=== PATIENT | female | born 1945 | race Caucasian/White ===

== ENCOUNTER 2021-10-27 11:38 | Inpatient (IN) | payer MEDICARE ==
[~2021-10-27] VITALS: Ht 160 cm; Wt 58.5 kg
[~2021-10-27 11:38] MED LIST: ACYCLOVIR800 MG PO; ADVAIR 250-501 EACH INH; ALBUTEROL2.5 MG/0.5 INH; CIPRO500 MG PO; DIAZEPAM5 MG PO; DILTIAZEM 24HR360 MG PO; DILTIAZEM ER300 M1 PO; ELIQUIS5 MG PO; EUTHYROX50 MCG PO; FUROSEMIDE20 MG PO; IBUPROFEN800 MG PO; K-TAB ER20 MEQ PO; LANOXIN125 MCG PO; LEVOTHYROXINE50 MC1 PO; MAG-OXIDE400 MG PO; MAGNESIUM400 MG PO; MAPAP500 MG PO; MUPIROCIN22 GM TP; OMEPRAZOLE20 MG PO; PREDNISONE20 MG PO; PROAIR HFA8.5 GM; SYMBICORT 16010.2 GM INH; SYNTHROID75 MCG PO; TUSSINMAX15 MG/5 ML PO; ULTRAM50 MG PO; VALIUM5 MG PO; VERAPAMIL HCL120 MG PO; VOLTAREN ARTHRI20 GM TOP; ZITHROMAX250 MG PO
--- OUTSIDE RECORDS SUMMARY | 2021-10-27 11:40 | XMS ---
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 E.D. VISIT COUNT (12 MO.) 1 [facility] H. 4 [facility] 3 [facility] [address] [facility] 2 [facility] Wiggins TOTAL 12 NOTE: Visits indicate total known visits. ED/UCC VISIT TRACKING (12 MO.) 10/27/2021 11:39 [facility] [place] TYPE: Emergency COMPLAINT: - POSS SUICIDE ATTEMPT 10/13/2021 11:[address] [facility] [place] TYPE: Emergency DIAGNOSES: - Chronic obstructive pulmonary disease with (acute) exacerbation - SOB/Chest Pain 10[facility]12[facility]2021 00:12 [facility] [facility]: Emergency COMPLAINT: - SOB 09/24/2021 22:[address] [facility] Maricel [place] TYPE: Emergency DIAGNOSES: - Shortness of Breath - sob - Acute respiratory failure with hypercapnia - Acute respiratory failure with hypoxia - Acute respiratory distress - Chronic obstructive pulmonary disease with (acute) exacerbation 07/04/2021 16:15 [facility] [place] TYPE: Emergency DIAGNOSES: - Diverticulitis of intestine, part unspecified, without perforation or abscess without bleeding - ABD PAIN 06/21/2021 07:44 [facility] TYPE: Emergency DIAGNOSES: - Diverticulitis of intestine, part unspecified, without perforation or abscess without bleeding - ABDOMINAL PAIN 05/19/2021 19:28 [facility] TYPE: Emergency DIAGNOSES: - SOB - Chronic obstructive pulmonary disease, unspecified 04/27/2021 03:30 [facility] [place] TYPE: Emergency DIAGNOSES: - Non-ST elevation (NSTEMI) myocardial infarction - COPD EXACERBATION 04/23/2021 16:06 [facility] TYPE: Emergency COMPLAINT: - Shortness of Breath DIAGNOSES: - Chronic obstructive pulmonary disease with (acute) exacerbation - Shortness of Breath 03[facility]13[facility]2021 [facility] [place] [facility]: Emergency DIAGNOSES: - Chest Heaviness - Shortness of Breath - Phlebitis and thrombophlebitis of unspecified site - Arm Pain 03/08/2021 15[facility] [place] TYPE: Emergency DIAGNOSES: - Acute cystitis without hematuria - Chronic obstructive pulmonary disease, unspecified - Diverticulitis of intestine, part unspecified, without perforation or abscess without bleeding - Abdominal Pain - Constipation - Dependence on supplemental oxygen - Disorder of kidney and ureter, unspecified 02/19/2021 12[facility]03 [facility] [place] TYPE: Emergency DIAGNOSES: - Diverticulitis of intestine, part unspecified, without perforation or abscess without bleeding - Abdominal Pain - Chest Pain INPATIENT VISIT TRACKING (12 MO.) 10/12/2021 00:13 [facility] TYPE: Observation COMPLAINT: - EXACERBATION OF COPD DIAGNOSES: - Acute and chronic respiratory failure with hypoxia - Anxiety disorder, unspecified - Gastro-esophageal reflux disease without esophagitis - Hypothyroidism, unspecified - Unspecified atrial fibrillation - Acute and chronic respiratory failure with hypercapnia - Do not resuscitate - Chronic obstructive pulmonary disease with (acute) exacerbation - long-term (current) use of anticoagulants - Nicotine dependence, unspecified, uncomplicated - Hypokalemia 09/24/2021 22:[facility] DIAGNOSES: - Acute respiratory distress - Unspecified severe protein-calorie malnutrition - Other toxic encephalopathy - Nicotine dependence, unspecified, uncomplicated - Acute and chronic respiratory failure with hypercapnia - Anxiety disorder, unspecified - Acute cystitis without hematuria - Acute and chronic respiratory failure with hypoxia - Acute respiratory failure with hypoxia - Hypothyroidism, unspecified - Unspecified atrial fibrillation - Acute respiratory failure with hypercapnia - Chronic obstructive pulmonary disease with (acute) exacerbation - Chronic obstructive pulmonary disease with (acute) exacerbation - Gastro-esophageal reflux disease without esophagitis 04/27/2021 08:16 [place] TYPE: Medical Surgical COMPLAINT: - CAP; ELEV TROPONIN; NSTEMI R/O DIAGNOSES: 0. Shortness of breath 1. Pneumonia, unspecified organism 2. Acute and chronic respiratory failure with hypoxia 3. Diverticulitis of large intestine without perforation or abscess without bleeding 4. Other forms of acute ischemic heart disease 5. Chronic obstructive pulmonary disease with (acute) lower respiratory infection 6. Anxiety disorder, unspecified 7. Hypothyroidism, unspecified 8. Essential (primary) hypertension 9. Nicotine dependence, cigarettes, uncomplicated 10. Dependence on supplemental oxygen 11. Family history of ischemic heart disease and other diseases of the circulatory system 12. Family history of disorders of kidney and ureter 13. Family history of malignant neoplasm of bladder 03/08/2021 15:[facility] TYPE: Internal Medicine DIAGNOSES: - Dependence on supplemental oxygen - Diverticulitis of intestine, part unspecified, without perforation or abscess without bleeding - Disorder of kidney and ureter, unspecified - Chronic obstructive pulmonary disease, unspecified - Acute cystitis without hematuria [id number]
--- NOTE | 2021-10-27 12:52 | EKG ---
[facility] [address] [place] [address] Signed Unusual P axis, possible ectopic atrial bradycardia Minimal voltage criteria for LVH, may be normal variant ( [place] product ) Abnormal ECG When compared with ECG of 12-OCT-2021 00:20, Ectopic atrial rhythm has replaced Sinus rhythm Vent. rate has decreased BY [address] no longer depressed in Inferior leads Non-specific change in ST segment in Anterolateral leads Confirmed by SUJATA DEGROOT DO ([id number]) on 10/27/2021 12:52:20 PM Electronically Signed By: SUJATA DEGROOT DO 10/27/21 1252 PATIENT NAME: BAYRON BARRETT Electrocardiogram DATE OF : 49 PHYSICIAN: SUJATA DEGROOT DO REPORT #: [id number] REPORT IS CONFIDENTIAL AND NOT TO BE RELEASED WITHOUT AUTHORIZATION
[2021-10-27] MEDS ORDERED: LEVOTHYROXINE75 MCG PO (13:31)
[2021-10-27] MEDS ORDERED: BUDESONIDE-FO10.2 G1 INH (13:32)
--- NOTE | 2021-10-27 17:11 | NUR ---
MED REC COMPLETE
--- NOTE | 2021-10-27 17:45 | NUR ---
PT ARRIVED FROM ER AT 1715. PT NEEDED IV SITES FOR MEDS. PT ON VENT. PT NOT ADEQUATLEY SEDATED AT THIS TIME. ATTEMPTED TO PUT IN OG-TUBE. PT WAS FIGHTING THE TUBE. PROPOFOR LOWERING BP AND HR TOO MUCH. URINE OTUPUT NONE SO FAR.
--- NOTE | 2021-10-27 18:45 | NUR ---
PT NOW ON KETAMIN DRIP AND PROPOFOL DRIP. HOPE TO FIND GOOD BALANCE BETWEEN SEDATION AND STABLE BP/HR. WAITING ON CONFIRMATION X-RAY FOR OG-TUB PLACEMENT. LOBES CLEAR AND DIMM. ABD SOUNDS PRESENT. PUPILS PINPOINT. ETCO2 <30,RT IS AWARE.
--- NOTE | 2021-10-27 20:59 | NUR ---
ASSESSED PT AT START OF SHIFT, PT BEGAN SHAKING AND HEART RHYTHM CHANGED FROM SINUS VIKKI TO A FLUTTER, AT NURSES STATION AND NOTIFIED, BLOOD TINGED GI CONTENTS COMING FROM OGMD NOTIFIED AT NURSES STATION. PT CURRENTLY HAS RASS OF -4, SEDATED AND INTUBATED, ON PROPOFOL AND KETAMINE, IN RESTRAINTS ON WRISTS. WILL CONTINUE TO CLOSELY MONITOR PT
--- NOTE | 2021-10-27 23:28 | NUR ---
POISON CONTROL CALLED TO CHECK IN ON PT AND TREATMENTS. PER THEIR RECOMMENDATION, REPEAT DIGOXIN LEVEL ORDERED FOR 0000.
--- NOTE | 2021-10-28 00:13 | NUR ---
Dr Moreno notified of decreased urine output, pt has had a total of 28ml of urine out for my shift so far and over 600ml intake via IV fluids. Dr Moreno stated she was not concerned about the urine output, no new orders recieved.
--- NOTE | 2021-10-28 01:10 | NUR ---
received call from lab critical value digoxin 2.1
--- NOTE | 2021-10-28 03:54 | NUR ---
[facility] CALLED, UPDATED ON DIGOXIN LEVEL. PER THEIR RECOMMENDATIONS, ADDED ANOTHER DIGOXIN LEVEL TO MORNING LABS.
--- NOTE | 2021-10-28 04:00 | NUR ---
PT REMAINS AT RASS -4, HAVE DECREASED PROPOFOL TO 10 AND KETAMINE TO 0.1, WILL CONTINUE DECREASING SEDATION AND PLAN TO DO SAT AROUND 0500 WITH RT
--- NOTE | 2021-10-28 05:45 | NUR ---
WHILE ASSISTING WITH REPOSITIONING, NOTICED SKIN TEAR TO LEFT FOREARM, ABOVE RESTRAINTS. WOUND CLEANSED WITH WOUND SIGNAL SYSTEM TESTING MAINTAINER, BACITRACIN APPLIED, AND THEN COVERED WITH NON-ADHESIVE PAD AND WRAPPED WITH GAUZE.
--- NOTE | 2021-10-28 06:02 | NUR ---
SBT STARTED AT 0510.
--- NOTE | 2021-10-28 06:07 | NUR ---
PT DOING SAT, SEDATION IS OFF, PT ABLE TO FOLLOW COMMANDS AND SHAKE HER HEAD YES AND NO WHEN ASKED QUESTIONS, SHOOK HER HEAD NO TO THE QUESTION "DO YOU KNOW WHERE YOU ARE", SHOOK HER HEAD YES TO THE QUESTION "DO YOU REMEMBER TAKING A LOT OF YOUR MEDICINE", AND SHOOK HER HEAD YES TO THE QUESTION "WERE YOU TRYING TO END YOUR LIFE". DAUGHTER AT BEDSIDE AND EDUCATED TO THE PROCESS OF THE SAT/SBT WELL PLANS REGARDING HER HOSPITAL STAY. DAUGHTER STATED SHE WANTS TO TAKE HER MOM TODAY AND DOES NOT UNDERSTAND WHY WE CANNOT RELEASE HER MOTHER AT THIS POINT. FURTHER EDUCATION REGARDING THE SITUATION WILL BE PROVIDED.
--- NOTE | 2021-10-28 08:00 | NUR ---
RECEIVED REPORT AT 0700. PT WAS ON C-PAP AT THAT TIME ON A SEDATION VACATION. AT THIS TIME LOBES ARE CLEAR BUT DIMINISHED IN THE BASES. ABD SOUNDS PRESENT. BILATERAL LOWER LEGS AND FEET HAVE SOME TRACE EDEMA PRESENT. V/S WDL SO FAR.
--- NOTE | 2021-10-28 09:00 | NUR ---
AT 0845 PT WAS PUT BACK ON VENT DUE TO FALIURE OF SEDATIONS VACATION. PT BREATHS BECAME VERY SHALLOW AND PT WOULD ONLY ON COMMAND TAKE DEEP BREATHS WITH SOMEONE AT BEDSIDE. INFORMED.
--- NOTE | 2021-10-28 09:15 | NUR ---
PT FAILED WEAN TRAIL LOW MINUTE VENTILATION 3.88 AND TIDAL VOLUMES OF 150 ,PT HAD INCREASE BP AND WAS DROWSY, PLACED BACK ON SUPPORT . WILL CONTINUE SPONT BREATHING TRIALS THOUGHOUT THE DAY
--- NOTE | 2021-10-28 09:37 | NUR ---
PATIENT REMAINS ON VENT. NO FAMILY IN THE ROOM AT THIS TIME. WILL ASSESS PATIENTS NEEDS WITH PATIENT OR FAMILY WHEN AVAILABLE.
--- NOTE | 2021-10-28 10:00 | NUR ---
OG-TUBE FLUSHED WITH 40MLS H20. PT RE-POSITIONED FLOATING HER HIPS. INLINE SUCTIONS DONE, ORAL SUCTION DONE. PT NOW BACK ON PROPOFOL AT 30MCG. URINE OUTPUT WDL SO FAR.
--- NOTE | 2021-10-28 10:13 | NUR ---
PT JUST WENT INTO A-FLUTTER AT 45-50. MD DUBOSE CALLED, NO NEW ORDERS RECEIVED.
--- NOTE | 2021-10-28 10:20 | NUR ---
PT BACK IN SINUS VIKKI RHYTHM. WILL CONTINUE TO MONITOR.
--- NOTE | 2021-10-28 11:12 | NUR ---
AT THIS TIME PROPOFOL WAS PUT ON STANDBY TO TRY ANOTHER SEDATION VACATION. RT IN ROOM.
--- NOTE | 2021-10-28 12:30 | NUR ---
PT SLOWLY IS WAKING UP ONCE MORE. STILL ON VENT SETTING SO FAR. PT NOT RESPONDING TO COMMANDS OF YET. LOBES CLEAR BUT DIMINISHED THROUGHOUT, ABD SOUNDS SOMEWHAT PRESENT, RESTRAINTS WDL, URINE OUTPUT WDL. WILL CALL RT NOW.
--- NOTE | 2021-10-28 12:40 | NUR ---
RT IN ROOM, PT NOW ON C-PAP MODE AND SO FAR FOLLWING COMMANDS TO TAKE DEEP BREATHS. PT ASLO MOVING HER ARMS AND LEGS SPONTANEOUSLYL.
--- NOTE | 2021-10-28 14:32 | NUR ---
PT STILL ON AWAKENING TRIAL IN C-PAP MODE. PT MORE ALERT AT THIS TIME AND FOLLOWS MOST COMMANDS. RT ON HER WAY.
--- NOTE | 2021-10-28 14:45 | NUR ---
PT WAS SEDATION VACATION FROM 1240 TO 1445, PATIENT TILL NOT WAKEFUL, SHE IS ABLE TO FOLLOW SOME INSTRUCTIONS, AND HAS IMPROVED MINUTE VENTILATION 4.89 HOWEVER TIDAL VOLUMES DROP INTO THE LOW 150 RANGE AND RSBI INCREASES TO 110. TALK TO DOCTOR RASH SHE WOULD LIKE TO WORK ON THE SEDATION TO OPTIMIZE PATIENT OWN ABILITY AND WANT ANOTHER SEDATION VACATION EITHER TONIGHT OR IN THE AM. PLAN IS TO REEVAUATE IN THE AM AND MAY EXTUBATE WITH BIPAP ON STANDBY,. DURING ORAL CARE PATIENT HAS A JENNIFER ON THE MIDLE OF THE LOWER LIP THAT WAS DUE TO THE EET TUBE SECURER. PATIENT WAS REPOSITION ORAL CARE PROVIDED AND EET WAS MOVED TO LEFT SIDE THE MOUTH. A SKIN POTECTIONG BARRIER WAS PLACED ON THE BOTTOM OF THE EET TO PREVENT FUTHER BREAKDOWN. WILL CONTINUE TO MOVE EET PER PROTOCAL . PT EET SECURE 7.0 23 AT LIP , PATIENT APPEARS COMFORTABLE AT THIS TIME .
--- NOTE | 2021-10-28 15:09 | NUR ---
AT THIS TIME PT IS NOT READY TO BE EXTUBATED. PT IS STILL BREATHING VERY SHALLOW AND NOT ABLE TO FULLY FOLLOW COMMANDS. AT THIS TIME PT IS BEING SWITCHED TO VENT SETTINGS PER MD DUBOSE. PT NOW IS ON 20MCG PROPOFOR AND 0.1MG KETAMINE DRIP.
--- NOTE | 2021-10-28 17:00 | NUR ---
PT RASS -3. UPPER LOBES CLEAR, LOWER LOBES DIMINISHED. V/S WDL OVERALL. ABD SOUNDS PRESENT. PT HAS BILATERAL LOWER ARM/LOWER LEG/FOOT EDEMA PRESENT. URINE OUTPUT WDL SO FAR. ORAL SUCTIONING DONE. OG OUTPUT MINIMAL SO FAR.
--- NOTE | 2021-10-28 18:29 | NUR ---
PATIENT RE-POSITIONED. PROPOFOL AT 5MCG, KETAMINE AT 0.4MG.
--- NOTE | 2021-10-28 20:00 | NUR ---
RT IN ROOM FOR VENT CHECK. DISCUSSED PLAN OF CARE, SEDATION VACATION AT 0600 PER . PATIENT APPEARS COMFORTABLE. RASS -3. VS STABLE. SOFT RESTRAINTS PER ORDER, RELEASED AND ROM DONE. PATIENT REPOSITIONED TO THE RIGHT SIDE. ALYVEN PLACED ON SCABS/ABRASIONS ON LEFT LOWER BACK. AGUIAR CARE DONE. ADEQUATE URINE OUTPUT NOTED. TAPE ON NG TUBE LOOSE, REPOSITIONED TO ORIGINAL LOCATION AND REATTACHED. OG FLUSHED AND LIWS ATTACHED, MODERATE AMOUNT OF BROWN SEDIMENT SECREATIONS OUT. ORAL CARE DONE, PATIENT MORE ALERT FOR THIS WITH EYES OPEN. DOES NOT LOOK AT RN OR FIXATE ON ANYTHING. WARM CLOTH USED TO WIPE FACE AND EYE CRUST, EYE DROPS PLACED. SKIN TEAR ON LEFT ARM CLEANED AND REDRESSED WITH ADAPTIC, NON-ADHERANT PAD AND LIGHTLY WRAPPED COBAN. WARM BLANKET ON PATIENT AND POTIIONED WITH HOB AT 30 DEGREES.
--- NOTE | 2021-10-28 22:00 | NUR ---
PATIENT APPEARS COMFORTABLE. RASS -2. PROP AT 5 MCG.KG/MIN, KETAMINE TITRATED TO 0.5 MG/KG/HR. IV FLUIDS PER ORDER, SITE WNL X3. HR 50'S, SB. ELEVATED BP, SYSTOLIC 160'S. TEMP WNL. O2 SATS 92% ON 40% Fi02, PATIENT BREATHING OVER VENT AT 16 BPM. ETCO2 48.
--- NOTE | 2021-10-29 | NUR ---
PATIENT REPOSITIONED. ORAL CARE DONE. PATIENT TOLERATED WELL. ADEQUATE URINE OUTPUT. SEDATION AND VENT SETTINGS UNCHANGED. O2 SAT 90% ON 40% Fi02, RR 16. OCCATIONAL COUGH AND SUCTION REQUIRED.
--- NOTE | 2021-10-29 02:00 | NUR ---
PATIENT FOUND TO BE RESTLESS. MOVING EXTREMITIES IN BED AND ATTEMPTING TO PULL AT RESTRAINTS. PATIENT'S EYES WERE OPEN AND SHE RESPONDED SOMEWHAT MEANINGFULLY TO VERBAL STIMULI. PROPOFOL TITRATED TO 10 MCG/KG/HR, KETAMINE 1.0 MCG/KG/MIN BY EILEEN RN AND NYDIA RN. PATIENT CONTINUES TO MORE ALERT. PATIENT SQUEEZES MY HAND WHEN PROMTED. RR 28 AND MORE LABORED. PATIENT REPOSNDS TO VERBAL CALMING AND IS MORE CALM IN THE BED. ALLOWED PATIENT TO REST.
--- NOTE | 2021-10-29 04:00 | NUR ---
PATIENT TURNED TO HER RIGHT SIDE. ORAL CARE DONE. PATIENT TOLERATED WELL WITH MINIMAL WAKING. RASS SCORE -3. RT IN FOR VENT CHECK. PATIENT RR 20-24. PATIENT IS FLUSHED AND WARM TO THE TOUCH. AGUIAR TEMP 100.7F, AXILLARY 100.1F. PO TYLENOL ADMINISTERED PER TUBE. SUCTION STOPPED AT THIS TIME. AGUIAR CARE DONE, GOOD URINE OUTPUT. BP REMAINS ELEVATED, SYSTOLIC IN 160'S. HR 50-60'S, SINUS VIKKI. PROPOFOL TITRATED 5 MCG/KG/HR. KETAMINE TITRATED 0.6 MCG/KG/MIN. IV FLUIDS PER ORDER, SITES WNL X2. UPON ORAL AND ET SUCTION PATIENT HAD MODERATE AMOUNT OF SECREATIONS.
--- NOTE | 2021-10-29 05:43 | NUR ---
SEDATION VACATION STARTED. RT IN ROOM. ALL SEDATION IN STAND BY. PATIENT RASS SCORE -3.
--- NOTE | 2021-10-29 06:56 | NUR ---
discussed patient's sedation vacation results with md. RT AT BEDSIDE. PATIENT APPEARS APPROPRIATE FOR EXTUBATION. PATIENT ABLE TO COMMUNICATE THAT SHE DOES NOT WANT TO BE ON THE VENT AND DOES NOT WANT TO BE REINTUBATED. MD GAVE ORDERS TO EXTUBATE AND SWITCH TO BIPAP NEEDED. TUBE OUT PER RT AT 0645. PATIENT TOLERATED WELL. VOICE IS HORSE, PATIENT ON 8L OXY MASK WITH NEB TREATMENT. STATES "I WANT OUT OF HERE" AND ATTEMPTS TO REMOVE MASK. ENCOURAGED PATIENT TO REST. PATIENT WANTS HER DAUGHTER NAYELI CALLED. PATIENT VS STABLE.
--- NOTE | 2021-10-29 07:05 | NUR ---
UPDATE PROVIDED TO NAYELI, PER PATIENT REQUEST.
--- NOTE | 2021-10-29 07:15 | NUR ---
PATIENT TOLERATING OXY MASK WELL. PATIENT IS ALERT. TURNED TO RIGHT SIDE. PATIENT WANTS HER DAUGHTER TO PICK HER UP. ENCOURAGED PATIENT TO REST. RT AT BEDSIDE. PATIENT 1:1
--- NOTE | 2021-10-29 07:30 | NUR ---
REPORT RECIEVED. PATIENT ASKING TO GET OOB TO CHAIR. ASSESSMENT DONE. PATIENT ASKING FOR HOSPICE. TOLD PATIENT TAHT HER DAUGHTERS, DR. DUBOSE AND HERSELF WILL HAVE A MEETING REGARDING POC.
--- NOTE | 2021-10-29 08:00 | NUR ---
OOB TO CHAIR WITH ASSIST. ROUTINE MEDICATIONS GIVEN. IVF, AGUIAR CATH, OXYMASK AT [address] PATIENT HAS OCC COUGH. DEMOLITION WORKER IN ROOM.
--- NOTE | 2021-10-29 09:30 | NUR ---
REMAINS IN CHAIR, NO CHANGES. RR-20 AND NON LABORED.
--- NOTE | 2021-10-29 11:00 | NUR ---
BACK TO BED WITH ASSIST. TWO DAUGHTERS IN ROOM. IVF PATENT, AGUIAR CATH PATENT WITH CLEAR YELLOW URINE NOTED. PATIENT SLEEPING ON RIGHT SIDE. OXYMASK AT 4 L ON WITH SATURATION OF 97.
--- NOTE | 2021-10-29 11:05 | NUR ---
LIGHT OFF PER PATIENT REQUEST.
--- NOTE | 2021-10-29 12:30 | NUR ---
FAMILY MEMBERS OF PATIENT HERE TO TALK WITH DR. DUBOSE ABOUT POC. DR. DUBOSE AWARE.
--- NOTE | 2021-10-29 12:50 | NUR ---
DR. DUBOSE HERE TO TALK WITH FAMILY REGARDING PATIENT POC. FAMILY MEMBERS IN ROOM ARE ROMI COX (DAUGHTER), SUMAN PARADA (DAUGHTER), FAMILY MEMBERS ON PHONE: AUDIE MANRIQUEZ (DAUGHTER) AND PÉREZ GUZMAN (DAUGHTER). WITH DAUGHTERS TALKING TO DR. DUBOSE, ALL AGREE TO FOLLOW THEIR MOTHERS WISHES TO FOLLOW POLST FORM WHICH INDICATES PATIENT IS DNR AND WANTS COMFORT MEASURES ONLY. DR. DUBOSE HERE AND AWARE.
[2021-10-29] MEDS ORDERED: FENTANYL1 EAC4 TD (14:03)
[2021-10-29] MEDS ORDERED: MORPHINE S10 MG/5 ML PO (14:06)
--- NOTE | 2021-10-29 15:51 | NUR ---
NO CHANGES IN PATIENT CONDITION, PATIENT FAMILY MEMBERS SAID THEY WOULD BE ABLE TO TAKE HER HOME TOMORROW.
--- NOTE | 2021-10-29 15:55 | NUR ---
ASSESSMENT NOT DONE PATIENT COMFORT CARE. PATIENT IS SLEEPING ON RIGHT SIDE. O2 VIA OXYMASK AT 2 LITERS.
--- NOTE | 2021-10-29 16:30 | NUR ---
DAUGHTERS LEAVIING FOR THE NIGHT, REQUESTING EDUCATION REGARDING ANTICIPATED HOSPICE MEDS, PLAN TO GIVE EDUCATION TOMORROW WITH MEDICATION ADMINISTRAION AND THEY ARE AGREEABLE. ALSO ASK TO BE NOTIFIED WITH ANY CHANGE IN PT CONDITION.
--- NOTE | 2021-10-29 17:00 | NUR ---
REPORT TO MED-SURG. TO MED-SURG VIA BED. PATIENT NON-VERBAL AND NOT FOLLOWING COMMANDS AT THIS TIME. SINCE PATIENT RETURNED TO BED FORM CHAIR EARLIER, HAS NOT BEEN INTERACTIVE AT ALL. OBTUNDED. DAUGHTER ARE AWARE.
--- NOTE | 2021-10-29 17:52 | NUR ---
REPORT RECEIVED FROM CCU RN AND PT. ARRIVED VIA BED. SHE IS UNRESPONSIVE AND IS LABORED BREATHING. ARRIVED ON 2L NC AND O2 SAT IS 89%. SKIN APPEARS DUSKY. SHE HAS SKIN TEARS TO HER LEFT ARM AND ABRASIONS TO COCCYX. POSITIONED ON HER LEFT SIDE WITH BED ALARM ON.
--- NOTE | 2021-10-29 19:53 | NUR ---
REPORT RECEIVED FROM DAY SHIFT RN. PT LYING ON RIGHT SIDE WITH EYES CLOSED. NON RESPONSIVE TO VERBAL STIMULI. RESPIRATIONS EVEN. OXYMASK 2L IN PLACE. BED ALARM FOR SAFETY. WHITE BOARD UPDATED.
--- NOTE | 2021-10-29 22:20 | NUR ---
2PA TO REPOSITION PT IN BED FOR COMFORT. ORAL CARE COMPLETE. RESPIRATIONS LABORED. RESPIRATORY RATE 34. PRN ADMINISTERED PER EMAR. PT NON RESPONSIVE DURING CARES. BED ALARM FOR SAFETY.
--- NOTE | 2021-10-29 22:40 | NUR ---
Updated daughter Cecilia regarding patient status. Communicated with Cecilia that her mother's oxygen satus has declined into the 70's on 2L, and respirations have increased in the high 30's. Discussed with Cecilia that per chart, her mom's oxygen was 89% on 2L this afternoon. Cecilia reports she will update her sister and they'll likely come to see their mother here in the hospital. No other questions at this time.
--- NOTE | 2021-10-29 23:45 | NUR ---
PT REMAINS NON RESPONSIVE. RR MID 30'S. BREATHING LABORED WITH AUDIBLE SECRETION NOTED. PRN PER EMAR ADMINISTERED. O2 2L/OM IN PLACE. SpO2 60'S-70'S. PT REPOSITIONED FOR COMFORT. ORAL CARE COMPLETE.
--- NOTE | 2021-10-30 00:03 | NUR ---
FAMILY ARRIVED. AT BEDSIDE NOW. QUESTIONS ANSWERED. COFFEE PROVIDED. PT DOES NOT WISH FOR SPIRITUAL CARE AT THIS TIME. WILL NOTIFY STAFF WHEN READY.
--- NOTE | 2021-10-30 01:07 | NUR ---
SPIRITUAL CARE IN ROOM. FAMILY REPORTS PT APPEARS UNCOMFORTABLE AND LABORED BREATHING CONTINUES. DR. DUBOSE NOTIFIED. NEW TELEPHONE ORDERS RECEIVED VERIFIED WITH READ BACK METHOD.
--- NOTE | 2021-10-30 01:53 | NUR ---
IN ROOM TO MEDICATE PT FOR COMFORT. 2PA TO REPOSITION IN BED. ORAL CARE DONE BY FAMILY. COMFORT CARE TRAY PROVIDED WITH ASSIST FROM AIRCRAFT STRESS ANALYST. FAMILY AND PASTORAL CARE REMAIN IN ROOM.
--- NOTE | 2021-10-30 02:08 | NUR ---
I WAS NOTIFIED BY HOUSE CEDRIC DOLAN THAT FAMILY WAS REQUESTING SPIRITUAL CARE. SHOAIB INFORMED ME PT WAS TAKEN OFF VENT AND RAPIDLY DECLINING. UPON ARRIVAL IN , FAMILY GATHERED AROUND BS. FAMILY FREE TO GIVE ME BACKGROUND ON PT AND WAS ABLE TO INTERACT AND GOOD DIALOG FOLLOWED. DAUGHTER SUMAN INFORMED ME THAT ARRANGEMENT ARE MADE THROUGH [facility] [place] AND THAT PT CHOOSES CREMATION. FAMILY ALSO DECIDED ON ORGAN DONATION ALSO. THE FAMILY HAD SOME DISCUSSION REGARDING TAKING PT HOME. CEDRIC. RUBEN DOLAN ENTERED AND SHE EXPLAINED THE CHALLENGE OF TRYING TO TAKE PT HOME TO PASS. AFTER SOME TIME, FAMILY DECIDED IT WAS IN THE BEST INTEREST OF THE PT TO REMAIN AT [facility]. GAVE STERLING, FAMILY REQUESTED PRAYER. WILL CONTINUE TO FOLLOW NEEDED
--- NOTE | 2021-10-30 02:57 | NUR ---
IN ROOM PER FAMILY REQUEST TO MEDICATE FOR LABORED BREATHING AND AUDIBLE RESPIRATORY SECRETIONS. OXYMASK REMOVED PER FAMILY REQUEST. PT REMAINS NON RESPONSIVE WITH CARES. SUPPLIES PROVIDED PER FAMILY REQUEST FOR ORAL/SKIN CARE. FAMILY REMAINS AT BEDSIDE. NO FURTHER NEEDS.
--- NOTE | 2021-10-30 03:35 | NUR ---
Family called to nurses station stating they thought patient had passed. This RN to bedside at this time. Patient found in bed not breathing with no apical heart tones. Family at bedside. Dr. Moreno to be notified.
--- NOTE | 2021-10-30 03:39 | NUR ---
CALL LIGHT ANSWERED. FAMILY REPORTS PT NOT BREATHING. THIS RN ASSESSED PT. NO NOTABLE BREATHING OR PALPABLE PULSE. INDUSTRIAL ROOFER BRIGIDO AUSCULTATED FOR ONE MINUTE. NO APICAL PULSE NOTED UPON AUSCULTATION @ 0335. NOTIFIED DR. DUBOSE OF TIME OF . SENIOR MARKETING ENGINEER AWARE AND IS TO CALL DONOR LINE. FAMILY REMAINS AT BEDSIDE.
--- NOTE | 2021-10-30 05:07 | NUR ---
NOTIFIED BY CARLOS DOLAN THAT PT HAD PASSED AT 0335. ARRIVED AND FAMILY AT BS. RUBEN STEELE CALLED DONOR LINE, PT POSSIBLE DONOR. FAMILY READY TO CALL [facility]. GAVE ENCOURAGEMENT AND INSTRUCTION TO FAMILY. COMPLETED APPROPRIATE PAPER WORK. HAD PRAYER WITH FAMILY, WILL REMAIN UNTIL [facility] HAS ARRIVED. [facility] TO CONTACT RUBEN DOLAN AND WILL ASSIST.
--- NOTE | 2021-10-30 05:15 | NUR ---
POST MORTEM CARE COMPLETE. PIV X 2 AND AGUIAR CATH REMOVED. PAIN PATCH REMOVED AND WASTED WITH HAND CLOTH CUTTER RN. ASSISTED FAMILY TO COLLECT PT PERSONAL BELONGINGS. FAMILY REMAIN AT BEDSIDE.
--- NOTE | 2021-10-30 05:31 | NUR ---
PT LEFT VIA [facility] WITH [facility]. ALL BELONGINGS SENT WITH PT DAUGHTERS ROMI AND SUMAN.
== END 2021-10-30 03:35 | DRG 917 ==
LOC: ED 11:38 → CCU 15:39 → MS 15:39
PROVIDERS: ADMIT Internal Medicine; ATTEND Internal Medicine
PROC: 0BH18EZ Insertion of Endotracheal Airway into Trachea, Via Natural or Artificial Opening Endoscopic (ICD-10-PCS; principal; 2021-10-27)
PROC: 5A1945Z Respiratory Ventilation, 24-96 Consecutive Hours (ICD-10-PCS; 2021-10-27)
DX: T42.4X1A Poisoning by benzodiazepines, accidental (unintentional), initial encounter (principal); J96.21 Acute and chronic respiratory failure with hypoxia; J44.9 Chronic obstructive pulmonary disease, unspecified; Z20.822 Contact with and (suspected) exposure to COVID-19; I48.91 Unspecified atrial fibrillation; Z51.5 Encounter for palliative care; Z66 Do not resuscitate; Z78.1 Physical restraint status; F17.210 Nicotine dependence, cigarettes, uncomplicated; Z90.710 Acquired absence of both cervix and uterus; Z90.89 Acquired absence of other organs; Z98.890 Other specified postprocedural states; X58.XXXA Exposure to other specified factors, initial encounter; Z79.899 Other long term (current) drug therapy
CPT/HCPCS: 31500; 36600; 51702; 71045; 74018; 80048; 80053; 80162; 81001; 82803; 83735; 84100; 84443; 85025; 87088; 93005; 93010; 94002; 94003; 94640; 94660; 99285-25; C9113; C9803; G0480; J0330; J2060; J2543; J2704; J2920; J3480; J7060; U0003